=== PATIENT | female | born 1960 | race Caucasian/White ===

== ENCOUNTER → 2024-01-03 07:04 | Outpatient (REF) | payer BC, SELFPAY ==
[2024-01-03 08:09] LABS: % Basophils 0.9 % (0-2); % Eosinophils 7.1 % (0-6); % Immature Granulocytes 0.2 % (0-0.5); % Lymphocytes 28.3 % (20.5-51.1); % Monocytes 9.1 % (1.7-9.3); % Neutrophils 54.4 % (42.2-75.2); Absolute Basophils 0.1 10^3/uL (0-0.2); Absolute Eosinophils 0.4 10^3/uL (0-0.7); Absolute Lymphocytes 1.6 10^3/uL (1.2-3.4); Absolute Monocytes 0.5 10^3/uL (0.1-0.6); Absolute Neutrophils 3.1 10^3/uL (1.4-6.5); Hematocrit 37.2 % (37.0-47.0); Hemoglobin 12.3 g/dL (12.0-16.0); Mean Corp Hgb Conc. 33.1 g/dL (33.0-37.0); Mean Corpuscular Hgb 29.9 pg (27.0-31.0); Mean Corpuscular Volume 90.3 fL (81.0-99.0); Mean Platelet Volume 9.8 fL (7.4-10.4); Nucleated Red Blood Cells % 0 %; Platelet Count 330 10^3/uL (130-400); Red Blood Cell Count 4.12 10^6/uL (4.20-5.40); White Blood Cell Count 5.6 10^3/uL (4.8-10.8)
[2024-01-03 08:52] LABS: Glycohemoglobin (HgbA1c) 5.4 % (4.0-5.6)
[2024-01-03 08:58] LABS: ALT (SGPT) 15 U/L (0-35); AST (SGOT) 22 U/L (14-36); Albumin 4.2 g/dl (3.5-5.0); Alkaline Phosphatase 72 U/L (38-126); Blood Urea Nitrogen 14 mg/dl (7-17); Calcium 9.7 mg/dl (8.4-10.2); Carbon Dioxide 24 mmol/L (22-30); Chloride 104 mmol/L (98-107); Glucose 94 mg/dl (70-99); Iron 104 ug/dl (37-170); Potassium 4.8 mmol/L (3.5-5.1); Sodium 136 mmol/L (135-145); Total Bilirubin 0.5 mg/dl (0.2-1.3); Total Cholesterol 271 mg/dl (50-199); Total Protein 6.9 g/dl (6.3-8.2); Triglyceride 82 mg/dl (10-149); Very Low Density Lipoprotein 16 mg/dl (0-30); eGFR > 60.00
[2024-01-03 09:07] LABS: Percent Saturation 44 % (20-50); Total Iron Binding Capacity 235 ug/dl (265-497)
[2024-01-03 09:15] LABS: Vitamin D, 25-OH*** 40.6 ng/mL (30-80)
[2024-01-03 09:17] LABS: HDL Cholesterol 120 mg/dl; LDL Cholesterol, Calculated 135 mg/dl
[2024-01-03 09:28] LABS: TSH Reflex To Free T4 3.24 uIU/ml (0.47-4.68)
[2024-01-03 09:32] LABS: Ferritin 91.5 ng/ml (11.1-264.0)
[2024-01-03 10:04] LABS: Folate 4.3 ng/ml (2.76-20); Vitamin B12 850 pg/ml (239-931)
== END ==
LOC: REG 07:04
PROVIDERS: ATTENDING PHYSICIAN Family Medicine
DX: E78.2 Mixed hyperlipidemia (principal); E55.9 Vitamin D deficiency, unspecified; Z00.00 Encounter for general adult medical examination without abnormal findings
CPT/HCPCS: 36415; 80053; 80061; 82306; 82607; 82728; 82746; 83036; 83540; 83550; 84443; 85025

== ENCOUNTER → 2024-01-10 06:55 | Outpatient (REF) | payer BC, SELFPAY | LOC: REG 06:55 | PROVIDERS: ATTENDING PHYSICIAN Family Medicine | DX: N30.00 Acute cystitis without hematuria (principal) | CPT/HCPCS: 87086 ==

== ENCOUNTER → 2024-01-29 07:13 | Outpatient (REF) | payer BC, SELFPAY | LOC: MRI 3T 07:13 | PROVIDERS: ATTENDING PHYSICIAN Physician Assistant; FAMILY PHYSICIAN Family Medicine | DX: M54.12 Radiculopathy, cervical region (principal) | CPT/HCPCS: 72141 ==

== ENCOUNTER 2024-03-07 11:13 | Outpatient (RCR) | payer BC, SELFPAY | END 2024-03-07 23:59 | disposition home or self-care (01) | LOC: RPT 11:13 | PROVIDERS: ATTENDING PHYSICIAN Pain Medicine Interventional Pain Medicine; FAMILY PHYSICIAN Family Medicine | DX: M54.12 Radiculopathy, cervical region (principal); M79.601 Pain in right arm; M54.2 Cervicalgia; Z73.6 Limitation of activities due to disability | CPT/HCPCS: 97010; 97110; 97112; 97140; 97162 ==

== ENCOUNTER 2024-04-25 16:03 | Outpatient (RCR) | payer BC, SELFPAY | END 2024-04-25 23:59 | disposition home or self-care (01) | LOC: RPT 16:03 | PROVIDERS: ATTENDING PHYSICIAN Pain Medicine Interventional Pain Medicine; FAMILY PHYSICIAN Family Medicine | DX: M54.12 Radiculopathy, cervical region (principal); M79.601 Pain in right arm; M54.2 Cervicalgia; Z73.6 Limitation of activities due to disability | CPT/HCPCS: 97010; 97012; 97110; 97112; 97140 ==

== ENCOUNTER 2024-05-21 17:08 | Outpatient (RCR) | payer BC, SELFPAY | END 2024-05-21 23:59 | disposition home or self-care (01) | LOC: RPT 17:08 | PROVIDERS: ATTENDING PHYSICIAN Pain Medicine Interventional Pain Medicine; FAMILY PHYSICIAN Family Medicine | DX: M79.601 Pain in right arm (principal); M54.2 Cervicalgia; Z73.6 Limitation of activities due to disability | CPT/HCPCS: 97012; 97110; 97112; 97140 ==

== ENCOUNTER 2024-06-04 17:10 | Outpatient (RCR) | payer BC, SELFPAY | END 2024-06-04 23:59 | disposition home or self-care (01) | LOC: RPT 17:10 | PROVIDERS: ATTENDING PHYSICIAN Pain Medicine Interventional Pain Medicine; FAMILY PHYSICIAN Family Medicine | DX: M54.12 Radiculopathy, cervical region (principal); M54.2 Cervicalgia; M79.601 Pain in right arm | CPT/HCPCS: 97012; 97110; 97112; 97140 ==

== ENCOUNTER → 2024-08-30 11:58 | Outpatient (REF) | payer BC, SELFPAY ==
[2024-08-30 13:00] LABS: Blood Urea Nitrogen 12 mg/dl (7-17); Calcium 9.3 mg/dl (8.4-10.2); Carbon Dioxide 25 mmol/L (22-30); Chloride 105 mmol/L (98-107); Glucose 101 mg/dl (70-99); Potassium 4.2 mmol/L (3.5-5.1); Sodium 140 mmol/L (135-145); eGFR > 60.00
== END ==
LOC: REG 11:58
PROVIDERS: ATTENDING PHYSICIAN Family Medicine
DX: R51.9 Headache, unspecified (principal); R68.84 Jaw pain; Z98.890 Other specified postprocedural states
CPT/HCPCS: 36415; 70487; 80048; Q9967

== ENCOUNTER → 2024-12-03 11:18 | Outpatient (REF) | payer BC, SELFPAY | LOC: HWRAD 11:18 | PROVIDERS: ATTENDING PHYSICIAN Family Medicine | DX: M81.0 Age-related osteoporosis without current pathological fracture (principal) | CPT/HCPCS: 77080 ==

== ENCOUNTER → 2025-03-27 06:53 | Outpatient (REF) | payer MEDICARE, OTHER, SELFPAY | LOC: RAD 06:53 | PROVIDERS: ATTENDING PHYSICIAN Family Medicine | DX: M79.89 Other specified soft tissue disorders (principal); I87.2 Venous insufficiency (chronic) (peripheral) | CPT/HCPCS: 93925; 93970 ==

== ENCOUNTER → 2025-06-06 09:06 | Outpatient (REF) | payer MEDICARE, OTHER, SELFPAY ==
[2025-06-06 10:00] LABS: Hematocrit 40.2 % (37.0-47.0); Hemoglobin 13.4 g/dL (12.0-16.0); Mean Corp Hgb Conc. 33.3 g/dL (33.0-37.0); Mean Corpuscular Volume 91.2 fL (81.0-99.0); Nucleated Red Blood Cells % 0 %; Platelet Count 270 10^3/uL (130-400); Red Cell Dist. Width 13.5 % (11.5-14.5)
[2025-06-06 10:26] LABS: Glycohemoglobin (HgbA1c) 5.3 % (4.0-5.6)
[2025-06-06 11:38] LABS: ALT (SGPT) 19 U/L (0-35); AST (SGOT) 23 U/L (14-36); Albumin 4.7 g/dl (3.5-5.0); Alkaline Phosphatase 48 U/L (38-126); Blood Urea Nitrogen 15 mg/dl (7-17); Calcium 9.6 mg/dl (8.4-10.2); Carbon Dioxide 23 mmol/L (22-30); Chloride 108 mmol/L (98-107); Glucose 95 mg/dl (70-99); Potassium 4.8 mmol/L (3.5-5.1); Sodium 138 mmol/L (135-145); Total Protein 7.6 g/dl (6.3-8.2); Very Low Density Lipoprotein 14 mg/dl (0-30); eGFR > 60.00
[2025-06-06 11:54] LABS: HDL Cholesterol 135 mg/dl; LDL Cholesterol, Calculated 146 mg/dl
== END ==
LOC: REG 09:06
PROVIDERS: ATTENDING PHYSICIAN Physician Assistant
DX: Z00.00 Encounter for general adult medical examination without abnormal findings (principal); E78.2 Mixed hyperlipidemia; R73.03 Prediabetes
CPT/HCPCS: 36415; 80053; 80061; 83036; 84443; 85025

== ENCOUNTER 2025-09-05 06:25 | Day surgery (SDC) | payer MEDICARE, OTHER, SELFPAY | END 2025-09-05 10:14 | disposition home or self-care (01) | LOC: GI 06:25 | PROVIDERS: ATTENDING PHYSICIAN Internal Medicine | DX: Z12.11 Encounter for screening for malignant neoplasm of colon (principal); D12.2 Benign neoplasm of ascending colon; D12.3 Benign neoplasm of transverse colon; K56.2 Volvulus; Q43.8 Other specified congenital malformations of intestine; K62.89 Other specified diseases of anus and rectum; K62.0 Anal polyp; Z98.0 Intestinal bypass and anastomosis status | CPT/HCPCS: 45385; 45380; 88305 ==